=== PATIENT | female | born 1980 | race American Indian/Alaskan Native ===

== ENCOUNTER 2017-10-10 07:18 | Inpatient (IN) | payer MEDICAID ==
--- NOTE | 2017-10-09 17:26 | History and Physical Report ---
History of Present Illness Date of examination: 10/09/17 Date of admission: 10/10/2017 Chief complaint: here for c/s and btl History of present illness: Pt presents for repeat c/s with Dr. Bernal. Pt also to have btl. Pt preop done by Dr. Duenas on 10/09/17. All risk, benefits and alternatives were d/w pt and questions were addressed and answered. Consents were signed and placed on the chart. Menstrual History Regularity: regular Duration: 5 LMP: 01/10/2017 LMP reliability: definite LMP character: normal test type: urine test Date: 04/16/2017 BC at conception: none Planned ? no EDC Calculations LMP: 10/17/2017 EDC Confirmation: 10/17/2017 Gestational Age: 13 5/7 weeks Past History : 4 Term Births: 2 Premature Births: 0 Living Children: 2 Para: 2 Mult. Births: 0 Prev : 0 Aborta: 1 Elect. Ab: 1 Spont. Ab: 0 Ectopics: 0 # 1 Delivery date: 03/06/2002 Weeks Gestation: 39 Delivery type: Hours of labor: 10 Anesthesia type: IV Delivery location: [place] Sex: Male weight: 7-5 Name: Sera # 2 Delivery date: 2012 Delivery type: EAJuly # 3 Delivery date: 05/03/2016 Weeks Gestation: 39 Delivery type: Anesthesia type: epidural Delivery location: [facility] Sex: male weight: 7.63 Comments: rad breech presentation, multiple fibroids Past Medical History: Fibroids Past Surgical History: (05/03/2016) D&C: (2012) Family History Summary: Reviewed history and no changes required: 04/16/2017 Other family member - Has Family History Breast Cancer - Entered On: 10/04/2015 Other family member - Has Family History of CVA or Stroke - Entered On: 10/04/2015 Other family member - Has Family History of Diabetes - Entered On: 10/04/2015 Other family member - Has Family History of Hypertension - Entered On: 10/04/2015 Other family member - Has No Family History of Colon Cancer - Entered On: 2015 Other family member - Has No Family History of Ovarvian Cancer - Entered On: 10/03 Social History: Patient is single [place] Risk Factors: Smoked Tobacco Use: Never smoker Drug use: no HIV high-risk behavior: low risk Alcohol use: yes Drinks per day: social Dietary Counseling: pn yes Past Medical History 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) D&C: (2012) Abnormal PAP: negative Uterine Anomaly: negative Social Hx: Patient is single [facility] Infection History Hx of STD: none HIV Risk Eval: low risk Hepatitis B Risk Eval: low risk Active Medications (reviewed today): FORMULA 27-1 MG ORAL TABLET ( VIT-FE FUMARATE-FA) 1 po q day as directed [employer] () Current Allergies (reviewed today): No known allergies Past History Past Medical History: no pertinent history Past Surgical History: section, D&C K[facility]MAN History: denies: abnormal PAP smear Family/Genetic History: other (see hpi) Social history: no significant social history, - Obstetrical History Expected Date of Delivery: 10/17/17 Actual Gestation: 38 Week(s) 6 Day(s) : 4 Para: 2 Induced : 1 Number of Living Children: 2 Medications and Allergies Allergies Allergy/AdvReac Type Severity Reaction Status Date / Time No Known Allergies Allergy Verified 08/21/15 19:25 Home Medications Medication Instructions Recorded Confirmed Last Taken Type Vit No.130/Iron/Folic 1 each PO DAILY 10/24/15 10/24/15 Unknown History [ Tablet] Ibuprofen [Motrin 800 MG tab] 800 mg PO Q8HR PRN #30 tablet 05/03/16 Unknown Rx Lidocain2.5%/Prilocai2.5% [Emla] 5 gm TP 1XW #1 tube 05/03/16 Unknown Rx oxyCODONE /ACETAMINOPHEN [Percocet 1 - 2 tab PO Q4HR PRN #30 tab 05/03/16 Unknown Rx 5/325 mg] Review of Systems All systems: negative - Physical Exam Cardiovascular: Normal S1, Normal S2 Lungs: Positive: Clear to auscultation, Normal air movement Abdomen: Positive: normal appearance, soft. Negative: tenderness, guarding Genitourinary (Female): Positive: other (deferred) - Obstetrical FHR: auscultation normal Results All other labs normal. Assessment and Plan - Patient Problems (1) Previous delivery affecting Status: Acute Plan to address problem: -admit -consent signed -prepare for rpt c/s with BTL (2) Encounter for sterilization Status: Acute (3) AMA (advanced maternal age) multigravida 35+ Status: Acute (4) Uterine fibroid during , antepartum Status: Acute
[~2017-10-10 07:18] MED LIST: ANCEF/STERILE WATER 2 GM/20 ML 2 GM/20 ML SYRINGE IV NR; BICITRA PO SCH; EMLA TP PRN; LACTATED RINGERS 1,000 ML IV SCH; PEPCID IV SCH; PITOCin/NS 20 UNIT/1000ML DRIP 20 UNITS/1,000 ML BAG IV SCH; REGLAN IV SCH
[2017-10-10 07:52] LABS: Basophils # (Auto) 0.1 K/mm3 (0.0-0.1); Basophils % (Auto) 0.8 % (0.0-1.8); Eosinophils # (Auto) 0.1 K/mm3 (0.0-0.4); Eosinophils % (Auto) 0.9 % (0.0-4.3); Hemoglobin 9.9 gm/dl (10.1-14.3); Lymphocytes # (Auto) 2.2 K/mm3 (1.2-5.4); Lymphocytes % (Auto) 29.8 % (13.4-35.0); Mean Corpuscular HGB Conc 32 % (30-34); Mean Corpuscular Volume 71 fl (79-97); Monocytes # (Auto) 0.8 K/mm3 (0.0-0.8); Monocytes % (Auto) 10.8 % (0.0-7.3); Platelet Count 288 K/mm3 (140-440); Red Blood Count 4.39 M/mm3 (3.65-5.03); Red Cell Distribution Width 16.8 % (13.2-15.2)
--- NOTE | 2017-10-10 07:52 | Event Note ---
Date: 10/10/17 Patient arrived late to [facility] for c/s w/ BTL. She was informed her procedure may be delayed since she arrived late. She voiced understanding and desires to proceed with C/S w/ BTL when time permits.
[2017-10-10 07:53] LABS: Mean Corpuscular Hemoglobin 23 pg (28-32)
--- NOTE | 2017-10-10 08:12 | Anesthesia Consultation ---
Anesthesia Consult and Med Hx Date of service: 10/10/17 - Airway Anesthetic Teeth Evaluation: Good ROM Head & Neck: Adequate Mental/Hyoid Distance: Adequate Mallampati Class: Class II Intubation Access Assessment: Probably Good - Pre-Operative Health Status ASA Pre-Surgery Classification: ASA2 Proposed Anesthetic Plan: Epidural, Spinal - Pulmonary Hx Asthma: No COPD: No Hx Pneumonia: No - Cardiovascular System Hx Hypertension: Yes - Central Nervous System Hx Seizures: No Hx Psychiatric Problems: No - Endocrine Hx Renal Disease: No Hx End Stage Renal Disease: No Hx Hypothyroidism: No Hx Hyperthyroidism: No - Hematic Hx Anemia: No Hx Sickle Cell Disease: No - Other Systems Hx Alcohol Use: No
--- NOTE | 2017-10-10 08:12 | Anesthesia Day of Surgery ---
Anesthesia Day of Surgery - Day of Surgery Patient Examined: Yes Patient H&P Reviewed: Yes Patient is NPO: Yes
[2017-10-10] MEDS ORDERED: WATER FOR IRRIG STERILE IR ONE (08:30)
[2017-10-10] MEDS ORDERED: NACL 0.9% IR ONE (08:30)
[2017-10-10] MEDS ORDERED: ePHEDrine SULFATE ONE (08:37)
[2017-10-10 08:50] LABS: Alanine Aminotransferase 10 units/L (7-56); Uric Acid 4.1 mg/dL (3.5-7.6)
[2017-10-10] MEDS ORDERED: ASTRAMORPH PF 10MG/10ML ONE (09:29)
[2017-10-10] MEDS ORDERED: TORADOL IV PRN (09:30)
[2017-10-10] MEDS ORDERED: NARCAN 0.4 MG/1 ML IV PRN ×2 (09:30→12:06)
[2017-10-10] MEDS ORDERED: SODIUM CHLORIDE FLUSH SYRINGE 10 ML IV PRN (09:30)
[2017-10-10] MEDS ORDERED: DILAUDID IV PRN (09:30)
[2017-10-10] MEDS ORDERED: BENADRYL IV PRN (09:30)
[2017-10-10] MEDS ORDERED: PHENERGAN PR PRN (09:30)
[2017-10-10] MEDS ORDERED: PHENERGAN PO PRN (09:30)
[2017-10-10] MEDS ORDERED: ZOFRAN IV PRN (09:30)
--- NOTE | 2017-10-10 10:05 | Operative Report ---
Operative Report Operative Report: Date: 10/10/2017 Preoperative diagnosis: 1. Intrauterine at 39 weeks 2. Previous delivery patient desires repeat delivery 3. Sterilization 4. Elevated blood pressures 5. Uterine fibroids Postoperative diagnosis: 1. Intrauterine at 39 weeks 2. Previous delivery patient desires repeat delivery 3. Sterilization 4. Elevated blood pressures 5. Uterine fibroids 6. Extensive pelvic adhesions Procedure: 1. Low transverse section 2. Bilateral tubal ligation Filshie clips 3. Lysis of adhesions Surgeon: Ann Marie Bernal MD Quality Control Tester: Toyin Sherwood Anesthesia: Combined spinal epidural Anesthesiologist: [] Estimated blood loss: 900 mL Urine out: 250 mL Findings: Live born female infant. Weight 7 pounds 12 oz. Apgars 8 at 1 minute and 8 at 5 minutes. Grossly enlarged multi-fibroid uterus, grossly tubes and ovaries Procedure: After risk, benefits, complications, consequences and alternatives for th procedure were discussed with patient and consents were reviewed and signed, she was taken to the OR where combined spinal epidural anesthesia was placed. She was then placed in the left lateral tilt position, and prepped and draped in the usual sterile fashion. Timeout was performed, and an appropriate level of anesthesia was noted, a Pfannenstiel incision was made and extended to the fascia which was incised and extended in the lateral directions. The overlying fascia was sharply dissected away from the underlying rectus muscles in the superior and inferior directions. The midline was entered with blunt and sharp dissection. The uterus was adhered to the anterior abdominal wall and with careful dissection the adhesions were released. The vesicouterine fold was incised and with blunt dissection the bladder flap was created. A transverse incision was made in the lower uterine segment and extended in superiolateral direction with finger fractionation. Clear fluid was noted. The infant was delivered from cephalic position. Mouth and nose were bulb suctioned. Spontaneous cry and excellent tone were noted. Cord was doubly clamped and cut. The infant was given to / resuscitation team present. The placenta was manually extracted. Due to the enlarged size of the uterus with multiple fibroids the uterus was unable to safely be lifted through the incision. The uterine cavity was cleared of any further products of conception or placental tissue. The incision was reapproximated using 0 Vicryl in a running interlocking stitch. Further sutures 0 Vicryl supply in a [id number] fashion for hemostasis. Attention was turned to the adnexa, the uterus was tilted to the patient's left and the fallopian tube was identified and carried out to its fimbriated end. The right fallopian tube was then grasped with a Moses clamp and 2 Filshie clips were applied into the ampullary region of the right tube. The same procedure was performed on the left tube where 2 Filshie clips were applied to the ampullary region of the tube once the fimbriated end was identified. With each application of clip the inferior portion was viewed through the mesosalpinx ensuring complete occlusion of both tubes 4. Attention was turned to the adnexa where hemostasis was noted. Surgicel was applied to the uterine incision for further hemostasis. Interceed was then placed to prevent adhesions. Then attention was turned to the rectus muscles. Once hemostasis was noted skin incision was reapproximated using 4-0 Vicryl on a Theo needle in a subcuticular manner. Counts were correct 3. Patient tolerated procedure well state recovery room in stable condition.
[2017-10-10 11:08] LABS: Bacteria,Urine 1+ /HPF (Negative); Bilirubin,Urine NEG (Negative); Blood,Urine SM (Negative); Color,Urine Red (Yellow); Protein,Urine <15 mg/dL mg/dL (Negative); Urobilinogen,Urine < 2.0 mg/dL (<2.0); WBC,Urine < 1.0 /HPF (0.0-6.0)
[2017-10-10] MEDS ORDERED: SODIUM CHLORIDE FLUSH SYRINGE 10 ML IV NR (12:06)
[2017-10-10] MEDS ORDERED: MYLICON PO PRN (12:06)
[2017-10-10] MEDS ORDERED: ANCEF/NS 1 GM/50 ML 1 GM/50 ML BAG IV SCH (12:06)
[2017-10-10] MEDS ORDERED: TUCKS PAD TP PRN (12:06)
[2017-10-10] MEDS ORDERED: TYLENOL PO PRN (12:06)
[2017-10-10] MEDS ORDERED: PITOCin/NS 20 UNIT/1000ML DRIP 20 UNITS/1,000 ML BAG IV SCH (12:06)
[2017-10-10] MEDS ORDERED: TYLENOL PR PRN (12:06)
[2017-10-10] MEDS ORDERED: LANSINOH TP PRN (12:06)
[2017-10-10] MEDS: D5LR 1,000 ML IV SCH (16:32)
[2017-10-10] MEDS: ceFAZolin 1 GM in NACL 0.9% 20 ML IV SCH (21:05)
[2017-10-10 22:40] LABS: Hematocrit 20.6 % (30.3-42.9); Hemoglobin 6.4 gm/dl (10.1-14.3)
[2017-10-10] MEDS ORDERED: NACL 0.9% 500 ML 500 ML IV ONE (23:46)
[2017-10-11] MEDS: D5LR 1,000 ML IV SCH (04:10)
[2017-10-11] MEDS: ceFAZolin 1 GM in NACL 0.9% 20 ML IV SCH (04:11)
--- NOTE | 2017-10-11 06:04 | Progress Note ---
Assessment and Plan - Patient Problems (1) delivery delivered Onset Date: 10/10/17 Current Visit: No Status: Acute Plan to address problem: pt A&O X 3 No c/o voiced VSS FF below umb Lochia small Dressing D&I to be removed this AM H&H 12/19 drop r/t blood loss from surgery Pt is asymptomatic Doing well s/p c/s P: continue pathway Advance diet and activity Subjective - Subjective Date of service: 10/11/17 (no c/o voiced) Principal diagnosis: Day #1 s/p repeat c/s with sterilization Patient reports: appetite normal, voiding normally, pain well controlled, ambulating normally [place]: doing well Objective - Vital Signs Latest vital signs: Vital Signs Temp Pulse Resp BP BP Pulse Ox 10/11/17 03:12 99.3 F 97 H 18 139/73 98 10/11/17 02:42 98.8 F 97 H 18 129/76 10/11/17 02:12 99.4 F 100 H 18 128/73 97 10/11/17 01:43 99.8 F H 102 H 18 124/71 97 10/11/17 01:42 99.8 F H 102 H 18 124/71 98 10/11/17 01:27 100.2 F H 106 H 18 126/77 98 10/10/17 23:35 99.5 F 88 18 141/77 98 10/10/17 20:30 98.2 F 91 H 20 131/69 10/10/17 16:09 97.7 F 74 20 126/74 98 10/10/17 11:30 97.3 F L 66 20 140/79 100 10/10/17 11:07 97.9 F 10/10/17 11:00 97.9 F 72 13 142/79 100 10/10/17 10:55 67 16 142/82 100 10/10/17 10:50 66 15 148/84 99 10/10/17 10:49 16 10/10/17 10:45 71 11 L 143/87 100 10/10/17 10:40 65 14 144/87 98 10/10/17 10:35 60 18 138/79 99 10/10/17 10:30 67 15 137/84 100 10/10/17 10:25 61 15 138/79 100 10/10/17 10:20 68 12 135/76 100 04/11/18 10:15 70 15 132/72 98 10/10/17 10:10 62 15 130/73 100 10/10/17 10:05 76 15 142/79 99 10/10/17 10:00 68 14 132/76 98 10/10/17 09:56 97.7 F 78 15 99 10/10/17 08:06 77 99 10/10/17 08:04 80 154/93 10/10/17 08:02 83 159/91 10/10/17 08:01 81 98 Intake and Output 10/10/17 10/10/17 10/11/17 14:59 22:59 06:59 Intake Total 2400 120 1000 Output Total 1150 1200 Balance 1250 -1080 1000 Intake: IV 2400 1000 D5lr 1,000 ml @ 125 mls/ 1000 hr IV DIRECT PABLITO Rx#: [id number] Oral 120 Blood Product 0 Leukoreduced Red Blood 0 Cells Unit [id number] Output: Urine 1150 1200 Indwelling Catheter 1200 Other: Total, Intake Amount 120 Total, Output Amount 600 Weight 188 lb Estimated Blood Loss 500 Patient Weight 10/11/17 06:59 Weight 188 lb - Exam Breasts: Present: normal Lungs: Present: Clear to auscultation, Normal air movement Abdomen: Present: normal appearance, soft, normal bowel sounds Uterus: Present: normal, firm, fundal height below umbilicus Extremities: Present: normal Deep Tendon Reflex Grade: Normal +2 Incision: Present: normal, dry, intact, dressed - Labs Labs: Abnormal lab results 10/10/17 10/10/17 10/10/17 Range/Units 07:30 07:30 07:30 Hgb 9.9 L (10.1-14.3) gm/dl Hct (30.3-42.9) % MCV 71 L (79-97) fl MCH 23 L (28-32) pg RDW 16.8 H (13.2-15.2) % [place] % (Auto) 10.8 H (0.0-7.3) % Creatinine 0.5 L (0.7-1.2) mg/dL Lactate Dehydrogenase 207 H (91-180) units/L Crossmatch See Detail 10/10/17 Range/Units 22:14 Hgb 6.4 L D (10.1-14.3) gm/dl Hct 20.6 L D (30.3-42.9) % MCV (79-97) fl MCH (28-32) pg RDW (13.2-15.2) % [place] % (Auto) (0.0-7.3) % Creatinine (0.7-1.2) mg/dL Lactate Dehydrogenase (91-180) units/L Crossmatch
[2017-10-11] MEDS ORDERED: BOOSTRIX IM ONE ×2 (06:30→09:51)
[2017-10-11 08:12] LABS: Hematocrit 23.4 % (30.3-42.9); Hemoglobin 7.6 gm/dl (10.1-14.3)
[2017-10-11] MEDS: MOTRIN PO PRN ×2 (09:25→20:15)
[2017-10-11] MEDS: PERCOCET 5/325 PO PRN (10:15)
[2017-10-11] MEDS: MILK OF MAGNESIA PO PRN (20:15)
[2017-10-11] MEDS: FEOSOL PO SCH (22:48)
--- NOTE | 2017-10-12 08:03 | Progress Note ---
<KHOI NEAL - Last Filed: 10/12/17 07:59> Assessment and Plan Patient resting in bed, c/o gas pain in abdomen. Incision D&I, lochia scant, VSSAF today (few elevated b/p 130-140/70's yesterday), post transfusion H&H 7.6/ 23.4 (pt is asymptomatic for anemia.) Continue postop pathway and anticipate d/ c home tomorrow. - Patient Problems (1) delivery delivered Onset Date: 10/10/17 Current Visit: No Status: Acute (2) Anemia, chronic disease Current Visit: No Status: Chronic Subjective - Subjective Date of service: 10/12/17 Principal diagnosis: Day #2 s/p repeat c/s with sterilization Patient reports: appetite normal, voiding normally, pain well controlled, ambulating normally, no dizzy ambulation, no flatus, no nauseated : doing well, nursing well (breast and bottle feeding) Objective - Vital Signs Latest vital signs: Vital Signs Temp Pulse Resp BP Pulse Ox 10/12/17 00:00 98.6 F 80 16 121/74 10/11/17 16:10 98.1 F 102 H 18 126/60 10/11/17 09:25 20 10/11/17 08:14 99.6 F 99 H 18 147/77 96 Intake and Output 10/11/17 10/11/17 10/12/17 15:59 23:59 07:59 Intake Total 240 240 600 Output Total 925 Balance -685 240 600 Intake: Oral 240 240 Intake, Free Water 600 Output: Urine 925 Void 925 Other: Total, Intake Amount 240 240 Total, Output Amount 500 - Exam Breasts: Present: normal, Cardiovascular: Present: Regular rate Lungs: Present: Clear to auscultation, Normal air movement Abdomen: Present: normal appearance, distention (pt has not yet passed gas) Uterus: Present: normal, firm, fundal height at umbilicus Extremities: Present: normal Deep Tendon Reflex Grade: Normal +2 Incision: Present: normal, dry, intact - Labs Labs: Abnormal lab results 10/11/17 Range/Units 07:24 Hgb 7.6 L (10.1-14.3) gm/dl Hct 23.4 L (30.3-42.9) % <JULIA HUMPHREY - Last Filed: 10/12/17 12:32> Assessment and Plan Eating a regular diet, still slightly distended, +BS, abd soft, Incision intact , no s/s infection She desires suppository now ? d/c tomorrow - Patient Problems (1) delivery delivered Onset Date: 10/10/17 Current Visit: No Status: Acute (2) Previous delivery affecting Current Visit: No Status: Acute (3) Uterine fibroid during , antepartum Current Visit: No Status: Acute (4) Anemia, chronic disease Current Visit: No Status: Chronic Objective - Vital Signs Latest vital signs: Vital Signs Temp Pulse Resp BP 10/12/17 08:38 98.1 F 98 H 20 152/88 10/12/17 00:00 98.6 F 80 16 121/74 10/11/17 16:10 98.1 F 102 H 18 126/60 Intake and Output 10/11/17 10/12/17 10/12/17 22:59 06:59 14:59 Intake Total 240 600 120 Balance 240 600 120 Intake: Oral 240 120 Intake, Free Water 600 Other: Total, Intake Amount 240 120 Voiding Method Toilet # Voids Void 1
[2017-10-12] MEDS: FEOSOL PO SCH ×2 (10:00→22:39)
[2017-10-12] MEDS ORDERED: DULCOLAX PR ONE (11:13)
[2017-10-12] MEDS: PERCOCET 5/325 PO PRN (11:17)
[2017-10-12] MEDS: MOTRIN PO PRN ×2 (11:18→17:50)
[2017-10-12] MEDS ORDERED: DULCOLAX PR PRN (12:32)
[2017-10-13] MEDS: PERCOCET 5/325 PO PRN (07:57)
[2017-10-13] MEDS: MOTRIN PO PRN (07:57)
[2017-10-13] MEDS: FEOSOL PO SCH (10:30)
[2017-10-13] MEDS: MILK OF MAGNESIA PO PRN (10:31)
--- NOTE | 2017-10-13 11:09 | Discharge Summary ---
Providers - Providers Date of Admission: 10/10/17 07:18 Date of discharge: 10/13/17 Attending physician: FRANK SAN 10/10/17 12:06 Consult to Chair Pad Maker [CONS] Routine Reason For Exam: Primary care physician: VALDO TOLBERT Hospitalization Reason for admission: section Delivery: Procedure: section, bilateral tubal ligation Procedure details: SEE OP NOTE Incision: normal, dry, intact baby: female Hospital course: PT S/P RLTCS WITH BTL. PT POST OP COURSE WAS COMPLICATED BY ANEMIA. SHE GOT ONE UNIT OF BLOOD WITH CURRENT HgB AT 7.6 AND W/O SX OF SOB, PALPITATIONS, DIZZINESS. SHE DESIRES D/C HOME TODAY. Condition at discharge: Good Disposition: DC-01 TO HOME OR SELFCARE - Discharge Diagnoses (1) Previous delivery affecting Status: Acute (2) Encounter for sterilization Status: Acute (3) AMA (advanced maternal age) multigravida 35+ Status: Acute (4) Uterine fibroid during , antepartum Status: Acute Plan - Discharge Medications Prescriptions: Ferrous Sulfate [Feosol 325 MG tab] 325 mg PO BID #90 tablet Ibuprofen [Motrin 800 MG tab] 800 mg PO TID PRN #30 tablet PRN Reason: Pain oxyCODONE /ACETAMINOPHEN [Percocet 5/325 mg] 1 - 2 tab PO Q4HR PRN #30 tablet PRN Reason: Pain - Provider Discharge Summary Activity: routine, no sex for 6 weeks, no heavy lifting 4 weeks Diet: routine Instructions: routine Additional instructions: [] Smoking cessation referral if applicable(refer to patient education folder for contact #) [] Refer to [facility] Booklet Call your doctor immediately for: * Fever > 100.5 * Heavy vaginal bleeding ( >1 pad per hour) * Severe persistent headache * Shortness of breath * Reddened, hot, painful area to leg or breast * Drainage or odor from incision. * Keep incision clean and dry at all times and follow doctor's instructions regarding bathing/showering - Follow up plan Follow up: VALDO TOLBERT MD [Primary Care Provider] - 7 Days Forms: [facility] Discharge Summary
[2017-10-13 15:46] VITALS: BP 148/89
== END 2017-10-13 16:00 | disposition home or self-care (01) | DRG 765 ==
LOC: APU 07:18 → OB 12:03
PROVIDERS: ADMIT Obstetrics & Gynecology; ATTEND Obstetrics & Gynecology
PROC: 10D00Z1 Extraction of Products of Conception, Low, Open Approach (ICD-10-PCS; principal; 2017-10-10)
PROC: 0UL70CZ Occlusion of Bilateral Fallopian Tubes with Extraluminal Device, Open Approach (ICD-10-PCS; 2017-10-10)
DX: O34.211 Maternal care for low transverse scar from previous cesarean delivery (principal); R71.0 Precipitous drop in hematocrit; O34.13 Maternal care for benign tumor of corpus uteri, third trimester; D25.9 Leiomyoma of uterus, unspecified; Z3A.39 39 weeks gestation of pregnancy; Z37.0 Single live birth; Z30.2 Encounter for sterilization; O90.81 Anemia of the puerperium
CPT/HCPCS: 36415; 81001; 82565; 83615; 84450; 84460; 84550; 85014; 85018; 85025; 86592; 86762; 86803; 86850; 86900; 86901; 86920; 87806; 90471; 90715; 99211; A6250; C1765; G0463; J0690; J1200; J1885; J2274; J2405; J2590; J2765; J7040; J7120; J7121; P9016; Q0169